=== PATIENT | male | born 1985 | race Caucasian/White ===

== ENCOUNTER 2021-04-06 16:17 | Emergency (ER) | payer OTHER ==
[~2021-04-06] VITALS: Ht 180.3 cm; Wt 88.5 kg
--- NOTE | 2021-04-06 16:20 | NUR ---
JAH VIA DAVY THIS 36/MALE PATIENT WITH COMPLAINTS OF ANXIETY, DIZZINESS AND WEAKNESS
--- NOTE | 2021-04-06 16:30 | NUR ---
SEEN BY DR PEARCE WITH ORDERS TO BE CARRIED OUT
--- NOTE | 2021-04-06 16:40 | NUR ---
IV CANNULA INSERTED ON LEFT AC G18. BLOOD SPECIMEN DRAWN AND SENT TO LAB.
--- NOTE | 2021-04-06 16:50 | NUR ---
CXR DONE BY POTATO PICKER AT BEDSIDE
[2021-04-06] MEDS ORDERED: ONDANSETRON HCL/PF - ER 4 MG/2 ML VIAL IV ONE (17:00)
[2021-04-06] MEDS ORDERED: MECLIZINE HCL 12.5 MG TABLET PO ONE (17:00)
[2021-04-06] MEDS ORDERED: IV NS 0.9% 1,000 ML BAG IV ONE (17:00)
--- NOTE | 2021-04-06 17:00 | NUR ---
PATIENT WAS WHEELED BY STRETCHER FOR CT SCAN ON THE HEAD.
[2021-04-06] MEDS ORDERED: ONDANSETRON HCL/PF 4 MG/2 ML VIAL ONE (17:10)
[2021-04-06] MEDS ORDERED: MECLIZINE HCL 25 MG TABLET ONE (17:11)
[2021-04-06 17:18] LABS: CALCIUM, SERUM 9.3 mg/dL (8.5-10.1); CARBON DIOXIDE 26 mmol/L (21-32); CHLORIDE 104 mmol/L (98-107); CREATININE 0.9 mg/dL (0.6-1.3); GLUCOSE 116 mg/dL (74-106); POTASSIUM 3.6 mmol/L (3.5-5.1); SODIUM SERUM 138 mmol/L (136-145); UREA NITROGEN, BLOOD 16 mg/dL (7-18)
[2021-04-06 17:24] LABS: ALANINE AMINOTRANSFERASE 54 U/L (12-78); ALBUMIN 4.2 g/dL (3.4-5.0); ALKALINE PHOSPHATASE 65 U/L (46-116); ASPARTATE AMINOTRANSFERASE 21 U/L (15-37); BILIRUBIN,DIRECT 0.1 mg/dL (0.0-0.2); BILIRUBIN,TOTAL 0.6 mg/dL (0.2-1.0); TOTAL PROTEIN, SERUM 7.5 g/dL (6.4-8.2)
[2021-04-06 17:31] LABS: BASOPHILS # (AUTO) 0.1 K/uL (0.0-0.2); BASOPHILS % (AUTO) 0.7 % (0.0-2.0); EOSINOPHILS % (AUTO) 1.2 % (0.0-6.0); HEMATOCRIT 41 % (39-51); HEMOGLOBIN 14.9 g/dL (13.5-17.5); LYMPHOCYTES # (AUTO) 2.1 K/uL (0.8-4.8); LYMPHOCYTES % (AUTO) 24.5 % (20.0-44.0); MEAN CORPUSCULAR HGB CONC 36 g/dl (31.0-36.0); MEAN CORPUSCULAR VOLUME 88 fL (80-96); MONOCYTES # (AUTO) 0.4 K/uL (0.1-1.30); MONOCYTES % (AUTO) 5.1 % (2.0-12.0); NEUTROPHILS % (AUTO) 68.5 % (43.0-81.0); PLATELET COUNT (AUTO) 263 K/uL (150-450); RED BLOOD CELL COUNT(AUTO) 4.71 MIL/uL (4.5-6.0); WHITE BLOOD COUNT (AUTO) 8.8 K/uL (4.3-11.0)
[2021-04-06] MEDS ORDERED: ONDA4TAB11 PO (18:55)
[2021-04-06 19:04] VITALS: BP 125/72
--- NOTE | 2021-04-06 19:04 | NUR ---
IV removed. Catheter intact and site benign. Pressure and 4x4 applied to site. No bleeding noted.Patient discharged to home in stable condition. Written and verbal after care instructions given. Patient verbalizes understanding of instruction.
== END 2021-04-06 19:05 | disposition home or self-care (01) ==
LOC: ER 16:56
DX: R55 Syncope and collapse (principal); R11.2 Nausea with vomiting, unspecified
CPT/HCPCS: 36415; 70450; 71045; 80048; 80076; 82962; 84484; 85025; 93005; 96361; 96374; 99285; J2405 ×2; J7030; J8597